=== PATIENT | male | born 1945 | race African-American/Black ===

== ENCOUNTER 2021-06-12 19:49 | Inpatient (IN) | payer MEDICARE ==
[~2021-06-12] VITALS: Ht 170.2 cm; Wt 41.7 kg
[2021-06-13 00:29] LABS: CHLORIDE 103 mEq/L (98-107)
[2021-06-13 00:52] LABS: BASOPHILS % 0.6 % (0.0-2.0); EOSINOPHILS % 0.4 % (0.0-5.0); HEMATOCRIT. 40.9 % (42.0-52.0); HEMOGLOBIN. 13.5 g/dL (14.0-18.0); MEAN CORPUSCULAR HEMOGLOBIN 27.1 pg (28.0-32.0); MEAN PLATELET VOLUME 11.4 fl (7.4-10.4); MONOCYTES % 6.1 % (2.0-8.0); NEUTROPHILS % 74.9 % (40.0-76.0); PLATELET 368 x1000/uL (130-400); RED BLOOD CELL COUNT 4.98 mill/uL (4.7-6.1); RED CELL DISTRIBUTION WIDTH 20.6 % (11.6-14.6)
[2021-06-13 03:17] LABS: CLARITY URINE CLEAR (CLEAR); COLOR URINE YELLOW (YELLOW); KETONES URINE 1+ (NEGATIVE); LEUKOCYTE ESTERASE URINE 1+ (NEGATIVE); NITRITE URINE NEGATIVE (NEGATIVE); OCCULT BLOOD URINE NEGATIVE (NEGATIVE); PROTEIN URINE TRACE (NEGATIVE); SPECIFIC GRAVITY URINE 1.019 (1.005-1.030)
[2021-06-13] MEDS ORDERED: TRAMADOL 50MG TABLET PO PRN (08:00)
[2021-06-13] MEDS ORDERED: NALOXONE HCL 0.4MG/ML VIAL IV PRN (08:30)
[2021-06-13] MEDS: ASPIRIN 81MG TABLET PO SCH (09:16)
[2021-06-13 10:00] VITALS: BP 131/90
[2021-06-13 10:45] VITALS: BP 130/90
[2021-06-13 12:00] VITALS: BP 112/64
[2021-06-13 16:00] VITALS: BP 131/63
[2021-06-13 20:00] VITALS: BP 123/58
[2021-06-14] VITALS: BP 136/70
[2021-06-14 04:00] VITALS: BP 116/67
[2021-06-14 08:00] VITALS: BP 105/70
[2021-06-14 12:00] VITALS: BP 122/75
[2021-06-14 16:11] VITALS: BP 103/59
[2021-06-14] MEDS: ASPIRIN 81MG TABLET PO SCH (19:08)
[2021-06-14 20:00] VITALS: BP 112/67
[2021-06-15] VITALS: BP 111/62
[2021-06-15 04:00] VITALS: BP 106/52
[2021-06-15 08:00] VITALS: BP 107/63
[2021-06-15] MEDS: ASPIRIN 81MG TABLET PO SCH (08:30)
[2021-06-15 12:00] VITALS: BP 116/68
[2021-06-15 16:00] VITALS: BP 128/73
[2021-06-15 20:00] VITALS: BP 104/59
[2021-06-16] VITALS: BP 92/62
[2021-06-16 04:00] VITALS: BP 129/77
[2021-06-16 08:00] VITALS: BP 115/61
[2021-06-16] MEDS: ASPIRIN 81MG TABLET PO SCH (08:35)
[2021-06-16 12:00] VITALS: BP 99/59
[2021-06-16 16:00] VITALS: BP 121/44
[2021-06-16 16:40] VITALS: BP 121/62
== END 2021-06-16 21:55 | DRG 556 ==
LOC: ER 19:49 → 7WST 06-13 02:56 → ENRESERV 06-13 07:21 → 7EST 06-13 22:17
PROVIDERS: ADMIT Internal Medicine; ATTEND Internal Medicine
DX: M25.511 Pain in right shoulder (principal); R65.10 Systemic inflammatory response syndrome (SIRS) of non-infectious origin without acute organ dysfunction; R53.1 Weakness; J44.9 Chronic obstructive pulmonary disease, unspecified; Z20.822 Contact with and (suspected) exposure to COVID-19; L98.9 Disorder of the skin and subcutaneous tissue, unspecified; F17.210 Nicotine dependence, cigarettes, uncomplicated; Z71.6 Tobacco abuse counseling; R77.8 Other specified abnormalities of plasma proteins; Z86.19 Personal history of other infectious and parasitic diseases
CPT/HCPCS: 36415; 71045; 80053; 81003; 83880; 84145; 84443; 84484; 85025; 93005; 93306; 97162; 99285; U0003; U0005